=== PATIENT | male | born 2000 | race Caucasian/White ===

== ENCOUNTER 2022-02-10 08:47 | Emergency (ER) | payer MEDICAID ==
[~2022-02-10] VITALS: Ht 182.9 cm; Wt 107.0 kg
[2022-02-10] MEDS ORDERED: IBUPROFEN 600MG TABLET PO ONE (09:30)
[2022-02-10 09:34] VITALS: BP 111/69
[2022-02-10] MEDS ORDERED: IBUP-2029 MT (10:55)
[2022-02-10] MEDS ORDERED: HYDR-4001 MT (10:55)
== END 2022-02-10 11:18 | disposition home or self-care (01) ==
LOC: ER 08:47
DX: S42.001A Fracture of unspecified part of right clavicle, initial encounter for closed fracture (principal); W05.1XXA Fall from non-moving nonmotorized scooter, initial encounter; Y93.89 Activity, other specified; Y92.9 Unspecified place or not applicable
CPT/HCPCS: 73000; 99283; A4565